=== PATIENT | male | born 1960 | race African-American/Black ===

== ENCOUNTER 2018-10-07 02:10 | Emergency (ER) | payer OTHER ==
[~2018-10-07] VITALS: Ht 172.7 cm; Wt 118.0 kg
[2018-10-07] MEDS ORDERED: ASPIRIN 81MG TABLET PO ONE (02:30)
[2018-10-07] MEDS ORDERED: FUROSEMIDE 100MG/10ML VIAL IVP ONE (02:30)
[2018-10-07] MEDS ORDERED: HYDROCODONE/ACETAMINOPHEN 10/325MG TABLET PO ONE (03:45)
[2018-10-07 04:38] LABS: BASOPHILS % 0.9 % (0.0-2.0); EOSINOPHILS % 2.2 % (0.0-5.0); HEMATOCRIT. 43.1 % (42.0-52.0); HEMOGLOBIN. 13.9 g/dL (14.0-18.0); LYMPHOCYTES % 10.8 % (20.0-50.0); MEAN CORPUSCULAR HEMOGLOBIN 27.6 pg (28.0-32.0); MEAN CORPUSCULAR VOLUME 85.4 fL (80.0-94.0); MEAN PLATELET VOLUME 9.1 fl (7.4-10.4); NEUTROPHILS % 81.1 % (40.0-76.0); PLATELET 210 x1000/uL (130-400); RED BLOOD CELL COUNT 5.05 mill/uL (4.7-6.1); RED CELL DISTRIBUTION WIDTH 16.5 % (11.6-14.6)
[2018-10-07 04:47] LABS: CHLORIDE 100 mEq/L (98-107)
[2018-10-07] MEDS ORDERED: INSULIN LISPRO 100 UNITS/ML SUBCUT NR (05:00)
[2018-10-07 10:01] VITALS: BP 125/77
== END 2018-10-07 10:47 | disposition short-term general hospital (02) ==
LOC: ER 02:10 → CANBEDREQ 10:14 → ER 10:47
DX: I11.0 Hypertensive heart disease with heart failure (principal); I50.9 Heart failure, unspecified; E11.65 Type 2 diabetes mellitus with hyperglycemia; I44.0 Atrioventricular block, first degree; R94.39 Abnormal result of other cardiovascular function study; I48.91 Unspecified atrial fibrillation; Z79.01 Long term (current) use of anticoagulants
CPT/HCPCS: 36415; 71045; 80053; 82962; 83880; 84484; 85025; 94660; 96372; 96374; 99291; J1815; J1940